=== PATIENT | male | born 1975 ===

== ENCOUNTER 2024-09-01 15:32 | Outpatient (CLI) | payer BC, SELFPAY ==
[2024-09-01 16:25] LABS: Abs Immature Grans 0.01 10^3/uL (0.0-0.06); HCT 41.5 % (40.0-50.0); HGB 14.0 g/dL (13.5-17.5); Immature Grans % 0.2 %; MCH 29.4 pg (27.0-33.0); MCHC 33.7 % (32.0-36.0); MCV 87 fL (80-95); MPV 10.1 fL (8.0-11.0); Platelet Count 260 10^3/uL (130-400); RBC 4.77 10^6/uL (4.36-5.78); RDW 12.0 % (11.8-14.1); RDW-SD 38.8 fL; WBC 5.48 10^3/uL (4.4-10.8)
[2024-09-01 17:25] LABS: ALT 28 U/L (16-63); AST 19 U/L (15-37); Albumin 3.9 g/dL (3.4-5.0); Alkaline Phosphatase 57 U/L (46-116); Anion Gap 10.3 mmol/L (3-11); BUN 11 mg/dL (7-18); Bilirubin, Total 0.7 mg/dL (0.2-1.0); CO2 26.7 mmol/L (21.0-32.0); Calcium 9.0 mg/dL (8.5-10.1); Chloride 103 mmol/L (98-107); Estimated GFR 118.34 (mL/min/1.73m2); Glucose 141 mg/dL (74-106); Potassium 3.8 mmol/L (3.5-5.1); Sodium 140 mmol/L (136-145); Total Protein 7.3 g/dL (6.4-8.2)
[2024-09-02 16:38] LABS: HBs Antibody, Quant <3.1 mIU/mL (See Note); Hepatitis B Surface Ab Negative (See Note)
[2024-09-02 17:19] LABS: Hepatitis C Ab w Rflx HCV PCR Negative (Negative)
[2024-09-02 17:21] LABS: Hep B Core Antibody Negative (Negative)
[2024-09-05 10:29] LABS: TB Interpretation Negative (Negative); TB1 Ag minus Nil 0.22 IU/mL; TB2 Ag minus Nil 0.02 IU/mL
== END 2024-09-01 15:33 | disposition home or self-care (01) ==
PROVIDERS: Visit Provider Dermatology
DX: L30.9 Dermatitis, unspecified (principal)
CPT/HCPCS: 36415; 80053; 86704; 86706; 86803; 87340; 85025; 86480